=== PATIENT | female | born 1990 | race African-American/Black ===

== ENCOUNTER 2017-10-16 20:44 | Emergency (ER) | payer MEDICAID ==
[~2017-10-16] VITALS: Ht 157.5 cm; Wt 108.0 kg
[2017-10-16 22:07] LABS: CLARITY URINE CLEAR (CLEAR); COLOR URINE YELLOW (YELLOW); KETONES URINE NEGATIVE (NEGATIVE); LEUKOCYTE ESTERASE URINE NEGATIVE (NEGATIVE); NITRITE URINE NEGATIVE (NEGATIVE); OCCULT BLOOD URINE TRACE (NEGATIVE); PROTEIN URINE NEGATIVE (NEGATIVE); SPECIFIC GRAVITY URINE 1.021 (1.005-1.030); UROBILINOGEN URINE 0.2 E.U./dL (0.2-1.0)
[2017-10-16] MEDS ORDERED: MAGNESIUM/ALUMINUM HYDROXIDE/SIMETHICONE 30ML UDC PO STA (23:19)
[2017-10-16] MEDS ORDERED: KETOROLAC 30MG/ML VIAL IV STA (23:19)
[2017-10-16] MEDS ORDERED: ONDANSETRON HCL 4MG/2ML VIAL IV STA (23:19)
[2017-10-17 00:49] LABS: BASOPHILS % 0.7 % (0.0-2.0); EOSINOPHILS % 0.5 % (0.0-5.0); HEMATOCRIT. 36.2 % (36.0-48.0); HEMOGLOBIN. 11.9 g/dL (12.0-16.0); LYMPHOCYTES % 20.3 % (20.0-50.0); MEAN CORPUSCULAR HEMOGLOBIN 25.8 pg (28.0-32.0); MEAN CORPUSCULAR VOLUME 78.3 fL (81.0-99.0); MEAN PLATELET VOLUME 9.4 fl (7.4-10.4); MONOCYTES % 10.6 % (2.0-8.0); NEUTROPHILS % 67.9 % (40.0-76.0); PLATELET 203 x1000/uL (130-400); RED BLOOD CELL COUNT 4.62 mill/uL (4.2-5.4)
[2017-10-17 00:53] LABS: CHLORIDE 103 mEq/L (98-107); PROTHROMBIN TIME 10.5 sec (9.1-11.1)
[2017-10-17 01:45] VITALS: BP 109/63
== END 2017-10-17 01:45 | disposition home or self-care (01) ==
LOC: ER 21:25
DX: R10.32 Left lower quadrant pain (principal); R19.7 Diarrhea, unspecified; R25.2 Cramp and spasm; R11.0 Nausea
CPT/HCPCS: 36415; 80053; 81003; 81025; 83690; 85025; 85610; 96374; 96375; 99284; J1885; J2405; Z7610